=== PATIENT | female | born 1955 | race Caucasian/White ===

== ENCOUNTER 2021-11-16 09:09 | Inpatient (IN) | payer MEDICARE, OTHER ==
[2021-11-07 16:33] LABS: BASOPHILS # (AUTO) 0.1 X10'3 (0-0.2); BASOPHILS % (AUTO) 0.9 % (0-1); EOSINOPHILS # (AUTO) 0.3 X10'3 (0-0.9); EOSINOPHILS % (AUTO) 3.8 % (0-6); MEAN CORPUSCULAR HEMOGLOBIN 29.4 PG (27.0-31.0); MEAN CORPUSCULAR HGB CONC 33.4 g/dL (33.0-36.5); MEAN CORPUSCULAR VOLUME 88.2 FL (78-98); MEAN PLATELET VOLUME 7.4 FL (7.4-10.4); MONOCYTES # (AUTO) 0.6 X10'3 (0-0.9); MONOCYTES % (AUTO) 7.3 % (2-12); NEUTROPHILS # (AUTO) 4.6 X10'3 (1.8-7.7); PRE OP HEMATOCRIT 37.4 % (35.0-45.0); PRE OP HEMOGLOBIN 12.5 g/dL (12.0-16.0); PRE OP PLATELET COUNT 243 X10'3 (140-440); RED BLOOD COUNT 4.24 X10'6 (4.20-5.60); RED CELL DISTRIBUTION WIDTH 14.6 % (11.5-14.5)
[2021-11-07 16:42] LABS: HEMOGLOBIN A1C 7.6 % (4.5-6.2)
[2021-11-07 16:50] LABS: ALBUMIN/GLOBULIN RATIO 1.2 (1.1-1.5); ALKALINE PHOSPHATASE 95 IU/L (46-116); BLOOD UREA NITROGEN 17 MG/DL (7-18); BUN/CREATININE RATIO 13.1 (6.6-38.0); CALCIUM 9.8 MG/DL (8.5-10.1); CHLORIDE 102 MMOL/L (99-107); PRE OP ALT 45 U/L (30-65); PRE OP ANION GAP 8 (8-16); PRE OP AST 44 U/L (10-37); PRE OP BILIRUB, TOTAL 0.5 MG/DL (0.0-1.0); PRE OP GLUCOSE 99 MG/DL (70-104); PRE OP POTASSIUM 3.9 MMOL/L (3.4-5.1); PRE OP SODIUM 139 MMOL/L (135-145); TOTAL CARBON DIOXIDE 28.7 MMOL/L (24-32); TOTAL PROTEIN 7.4 G/DL (6.4-8.2); eGFR 41 ML/MIN
[2021-11-16] VITALS (37 sets, daily range): BP systolic 115–155; BP diastolic 41–110
[~2021-11-16] VITALS: Ht 160 cm; Wt 107.0 kg
[~2021-11-16 09:09] MED LIST: ASCO1TAB42 PO; CHOL20004 PO; DET2LAC PO; GLIP2.5T3 PO; IBUP-1986 PO; IPRA4AER IH; LOSA25TA96 PO; LOSA50TA3 PO; MAGN500C4 PO; MECO10002 PO; MONT4TAB20 PO; OMEP40CA21 PO; SITA1TAB6 PO; TRAZ-251 PO; TRIA1TAB94 PO; VENL25TA48 PO; albuterol 2.5 MG/3 ML nebule NEB PRN; ceFAZolin inj. 2,000 MG in dextrose 5%-water 100 ML IV ONE; famotidine 20mg tablet PO ONE; ringers solution, lacted 1,000 ML IV SCH; tranexamic acid inj. 1,000 MG in 0.7% saline 100 ML PMX IV ONE; vancomycin 1,500 MG in NS 300ml IV soln IV ONE
--- NOTE | 2021-11-16 09:25 | NUR ---
CSM: PEDAL PULSES PRESENT AND MARKED. PATIENT READ THE BROCHURE AND WATCHED THE VIDEO. PATIENT USED MUPIROCIN CREAM ORDERED. EDUCATED PATIENT ON THE USE OF THE INCENTIVE SPIROMETER AND ITS IMPORTANCE.
[2021-11-16] MEDS ORDERED: ketorolac trometh. 30mg/ml inj. ONE (10:16)
[2021-11-16] MEDS ORDERED: morphine 10mg/ml inj. ONE (10:17)
[2021-11-16] MEDS ORDERED: ROPIVAcaine 0.5% (5mg/ml) 30ml vial ONE ×2 (10:17→11:07)
[2021-11-16] MEDS ORDERED: epiNEPHrine 1 mg/ml inj ONE (10:17)
[2021-11-16] MEDS ORDERED: vancomycin 1,000mg inj ONE ×2 (10:17→13:53)
[2021-11-16] MEDS ORDERED: ondansetron/PF 4mg/2ml inj IV PRN ×2 (10:55→14:55)
[2021-11-16] MEDS ORDERED: labetalol 20mg/4ml (5mg/ml) syringe IV PRN (10:55)
[2021-11-16] MEDS: ROPIVAcaine 0.2%/PF PUMP/bolus 545 ML ADDCANAL SCH (10:55)
[2021-11-16] MEDS ORDERED: HYDROmorphone/PF 0.2 MG/ML SYRINGE IV PRN (10:55)
[2021-11-16] MEDS ORDERED: ringers solution, lacted 1,000 ML IV SCH (10:55)
[2021-11-16] MEDS ORDERED: hydrALAZINE 20mg/ml inj. IV PRN (10:55)
[2021-11-16] MEDS ORDERED: fentaNYL/PF 50MCG/1 ML 2ML syringe IV PRN (10:55)
[2021-11-16] MEDS ORDERED: tetracaine 1% (10mg/ml) pres. free inj. ONE (11:07)
[2021-11-16] MEDS ORDERED: MIDAZolam 1mg/ml 10ml vial ONE (11:11)
[2021-11-16] MEDS ORDERED: fentaNYL/PF 50MCG/1 ML 2ML syringe ONE (11:11)
[2021-11-16] MEDS ORDERED: LIDOcaine 2% (20mg/ml) 5ml vial ONE (11:29)
[2021-11-16] MEDS ORDERED: propofol inj 20 ML IV ONE (11:30)
[2021-11-16] MEDS ORDERED: triamcinolone acetonide 40mg/ml inj ONE (11:36)
[2021-11-16] MEDS ORDERED: LIDOcaine 1% (10mg/ml) 2ml vial ONE (11:36)
[2021-11-16] MEDS ORDERED: epiNEPHrine 1 mg/ml inj IU ONE (12:23)
[2021-11-16] MEDS ORDERED: ROPIVAcaine 0.5% (5mg/ml) 30ml vial IJ ONE (12:23)
[2021-11-16] MEDS ORDERED: triamcinolone acetonide 40mg/ml inj IJ ONE (12:29)
[2021-11-16] MEDS ORDERED: LIDOcaine 1% (10mg/ml) 2ml vial IM ONE (12:31)
--- NOTE | 2021-11-16 14:52 | NUR ---
Received from OR via BED, accompanied by Anesthesiologist and OR NURSE. PT DROWSY BUT ABLE TO WAKE TO VERBAL STIMULATION AND FOLLOW COMMANDS. Addendum: 11/16/21 at 1533 by Ximena Dia RN Amended: Links added.
[2021-11-16] MEDS ORDERED: oxyCODONE IR 5mg (immed. release) tablet PO PRN (14:55)
[2021-11-16] MEDS ORDERED: HYDROmorphone 1 mg/ml syringe IV PRN (14:55)
[2021-11-16] MEDS ORDERED: bisacodyl 10mg suppository rectal RC PRN (14:55)
[2021-11-16] MEDS ORDERED: naloxone 0.4 mg/ml inj IV PRN (14:55)
[2021-11-16] MEDS ORDERED: magnesium hydroxide 30ml (MOM) UD suspension PO PRN (14:55)
[2021-11-16] MEDS ORDERED: HYDROmorphone inj. 0.5 MG/0.5 ML DISP.SYRIN IV PRN (14:55)
[2021-11-16] MEDS ORDERED: acetaminophen 325mg tablet PO PRN (14:55)
[2021-11-16] MEDS ORDERED: diphenhydrAMINE 25mg capsule PO PRN ×2 (14:55)
[2021-11-16] MEDS: HYDROmorphone/PF 0.2 MG/ML SYRINGE IV PRN ×5 (16:12→18:35)
--- NOTE | 2021-11-16 16:15 | NUR ---
ATTEMPTED TO CONNECT ONQ TO THE ABDUCTOR CANAL CATHETER PLACED IN OR. BLOOD IMMEDIATELY DRAINED FROM CATHETER. CALLED DR CALLES UPDATED ORDERS RECEIVED, DR SWAIN IN RECOVERY. ASSESSED PT AND D'C CATHETER; DRESSING APPLIED. BOTH ATTENDING SURGERY UPDATED Addendum: 11/16/21 at 1640 by Ximena Dia RN Amended: Links added.
[2021-11-16] MEDS: fentaNYL/PF 50MCG/1 ML 2ML syringe IV PRN ×2 (17:15→17:22)
[2021-11-16] MEDS: oxyCODONE IR 5mg (immed. release) tablet PO PRN (17:27)
--- NOTE | 2021-11-16 17:39 | NUR ---
Received report from Luly in PACU. They are still waiting for the cold therapy and then will bring the patient up to the floor. Patient will be coming up with pain not well controlled.
[2021-11-16] MEDS ORDERED: tranexamic acid inj. 1,000 MG in normal saline 100ml IV soln 90 ML IV ONE (17:40)
--- NOTE | 2021-11-16 17:50 | NUR ---
PT REMAINS VERY PAINFUL, UPPER THIGH REMAINS SOFT, NO S/S OF BLEEDING. CALL INTO DR CALLES AND UPDATED. ORDERS RECEIVED TO GIVE MORE PAIN MEDICATION AND START A DILAUDID CADD. Addendum: 11/16/21 at 1826 by Jill Argueta RN Amended: Links added.
[2021-11-16] MEDS: HYDROmorph/NS 0.2 mg/ml PCA 100 ML IV SCH ×4 (19:03→22:57)
--- NOTE | 2021-11-16 19:19 | NUR ---
Report called to receiving nurse. Transferred via BED WITH 2 BAGS OF Belongings. PT CHART HAD NOTE ON CHART STATING RETURNED HOME TO CALL WITH UPDATE; HOWEVER IN WAITING ROOM. ACCOMPANIED PT AND STAFF TO ROOM; UPDATES GIVEN. PT PAIN NOT WELL CONTROLLED BUT IMPROVED AT TIME OF TRANSFER; AFFECTED SIDE WARM AND SOFT TO PALPATION. RECEIVING NURSE AT BEDSIDE AND FULL REPORT GIVEN. . Special Issues communicated to receiving nurse. Addendum: 11/16/21 at 1940 by Ximena Dia RN Amended: Links added.
[2021-11-16] MEDS ORDERED: vancomycin/NS 1 GM ADD-VANTAGE 250 ML IV SCH (20:00)
[2021-11-16] MEDS ORDERED: non-formulary drug (Ibuprofen 1 TAB) PO PRN (20:30)
[2021-11-16] MEDS: ceFAZolin/D5W- 1GM premix 50 ML IV SCH (20:41)
[2021-11-16] MEDS: gabapentin 300mg capsule PO SCH (20:41)
[2021-11-16] MEDS: acetaminophen 325mg tablet PO SCH (20:42)
[2021-11-16] MEDS: tolterodine 2mg SR capsule (24hr) PO SCH (20:42)
[2021-11-16] MEDS: sennosides 8.6mg tablet PO SCH (20:42)
[2021-11-16] MEDS ORDERED: ipratropium/albuterol 3ml nebule IH PRN (20:50)
[2021-11-16] MEDS ORDERED: VENL75TA90 PO (20:53)
[2021-11-16] MEDS ORDERED: venlafaxine 25mg tablet PO SCH (21:00)
[2021-11-16] MEDS: losartan 50mg tablet PO SCH (21:56)
[2021-11-16] MEDS: traZODone 50mg tablet PO SCH (21:56)
[2021-11-16] MEDS: potassium cl 20mEq in 1/2 NS 1,000 ML IV SCH ×2 (21:57→22:55)
[2021-11-16] MEDS: metFORMIN 500mg tablet PO SCH (22:57)
[2021-11-17] MEDS ORDERED: GLIP5TAB13 PO (00:12)
[2021-11-17] MEDS ORDERED: MONT-40 PO (00:14)
[2021-11-17] MEDS: HYDROmorph/NS 0.2 mg/ml PCA 100 ML IV SCH ×8 (01:00→14:55)
--- NOTE | 2021-11-17 01:30 | NUR ---
battery would not charge on cadd pump. changed out before battery . no interruption of medication for patient. count will start over on new cadd.
[2021-11-17 01:45] VITALS: BP 146/72
[2021-11-17] MEDS: acetaminophen 325mg tablet PO SCH ×4 (01:45→20:04)
--- NOTE | 2021-11-17 01:52 | NUR ---
pt has been sleeping- woke up for vitals and patient very painful. took a couple of doses of dilaudid for patient to relax and pain control to have effect. also gave tylenol and benadryl as ordered. pt talking with roommate - encouraged guided imagery.
--- NOTE | 2021-11-17 01:56 | NUR ---
Witnessed change of new cadd pump due to battery dying. same medication and same settings with Pan FLAHERTY.
[2021-11-17] MEDS: ceFAZolin/D5W- 1GM premix 50 ML IV SCH (04:39)
[2021-11-17 06:00] VITALS: BP 143/71
--- NOTE | 2021-11-17 06:43 | NUR ---
reported to days. noted pt using cadd pump - awake and able to use for physical therapy. left leiva in place until pt able to be more mobile
[2021-11-17] MEDS ORDERED: metFORMIN 500mg tablet PO SCH (08:00)
[2021-11-17] MEDS ORDERED: BIOTIN PO SCH (08:00)
[2021-11-17] MEDS ORDERED: VITAMIN E PO SCH (08:00)
[2021-11-17] MEDS ORDERED: venlafaxine XR 75mg capsule (Q24H) PO SCH (08:00)
[2021-11-17] MEDS ORDERED: glipizide 5mg tablet PO SCH (08:00)
[2021-11-17] MEDS: MECOBALAMIN PO SCH (08:00)
[2021-11-17] MEDS ORDERED: [UNRECOGNIZED DRUG - OTHER] PO SCH (08:00)
[2021-11-17] MEDS ORDERED: ASCORBIC ACID PO SCH (08:00)
[2021-11-17] MEDS: triamterene/HCTZ 37.5/25mg tablet PO SCH (08:00)
[2021-11-17] MEDS ORDERED: non-formulary drug (Sitagliptin Phos/Metformin HCl (Janumet 50-1,000 mg Tablet) 1 TAB) PO SCH (08:00)
[2021-11-17] MEDS ORDERED: non-formulary drug (Venlafaxine HCl (Venlafaxine HCl ER) 1 TAB) PO SCH (08:00)
[2021-11-17] MEDS: metFORMIN 500mg tablet PO SCH ×2 (08:07→20:04)
[2021-11-17] MEDS: pantoprazole 40mg Tablet.DR PO SCH (08:08)
[2021-11-17] MEDS: losartan 50mg tablet PO SCH ×2 (08:08→21:26)
[2021-11-17] MEDS: cholecalciferol (vitamin D3) 1,000 unit (25mcg) tablet PO SCH (08:08)
[2021-11-17] MEDS: magnesium oxide 400mg tablet PO SCH (08:09)
[2021-11-17] MEDS: montelukast 10mg tablet PO SCH (08:09)
[2021-11-17] MEDS: linagliptin 5mg tablet PO SCH ×2 (08:09→20:04)
[2021-11-17] MEDS: gabapentin 300mg capsule PO SCH ×3 (08:09→21:27)
[2021-11-17] MEDS: enoxaparin 40mg/0.4ml syringe SQ SCH (08:10)
[2021-11-17] MEDS: potassium cl 20mEq in 1/2 NS 1,000 ML IV SCH ×3 (09:54→18:09)
[2021-11-17 10:00] VITALS: BP 118/47
[2021-11-17 11:09] LABS: BASOPHILS % (AUTO) 0.4 % (0-1); EOSINOPHILS # (AUTO) 0.2 X10'3 (0-0.9); EOSINOPHILS % (AUTO) 2.1 % (0-6); HEMATOCRIT 31.2 % (35.0-45.0); HEMOGLOBIN 10.6 g/dl (12.0-16.0); LYMPHOCYTES # (AUTO) 1.2 X10'3 (1.1-4.8); LYMPHOCYTES % (AUTO) 12.9 % (21-51); MEAN CORPUSCULAR HEMOGLOBIN 30.1 PG (27.0-31.0); MEAN CORPUSCULAR HGB CONC 34.2 g/dL (33.0-36.5); MEAN PLATELET VOLUME 7.5 FL (7.4-10.4); MONOCYTES # (AUTO) 0.8 X10'3 (0-0.9); MONOCYTES % (AUTO) 9.3 % (2-12); NEUTROPHILS # (AUTO) 6.8 X10'3 (1.8-7.7); NEUTROPHILS % (AUTO) 75.3 % (42-75); PLATELET COUNT 203 X10'3 (140-440); RED BLOOD COUNT 3.54 X10'6 (4.20-5.60); RED CELL DISTRIBUTION WIDTH 14.6 % (11.5-14.5); WHITE BLOOD COUNT 9.1 X10'3 (4.5-11.0)
[2021-11-17 11:28] LABS: ALBUMIN 3.1 G/DL (3.4-5.0); ANION GAP 9 (8-16); BLOOD UREA NITROGEN 13 MG/DL (7-18); BUN/CREATININE RATIO 10.7 (6.6-38.0); CALCIUM 8.5 MG/DL (8.5-10.1); CHLORIDE 101 MMOL/L (99-107); CREATININE 1.22 MG/DL (0.40-0.90); GLUCOSE 199 MG/DL (70-104); POTASSIUM 4.5 MMOL/L (3.5-5.1); SODIUM 137 MMOL/L (135-145); TOTAL CARBON DIOXIDE 27.5 MMOL/L (24-32); eGFR 44 ML/MIN
[2021-11-17] MEDS ORDERED: DEXTROSE 15 GM of carb/4 tabs (each vial/BOTTLE has 4 tablets) PO PRN ×2 (12:20)
[2021-11-17] MEDS ORDERED: glucagon, human recombinant 1mg kit SUBCUT PRN (12:20)
[2021-11-17] MEDS ORDERED: dextrose 50%-water 50ml dispensing syringe IV PRN ×2 (12:20)
[2021-11-17] MEDS: insulin Lispro (HumaLOG) vial - multi-dose SQ SCH ×2 (13:19→20:03)
[2021-11-17 13:58] VITALS: BP 126/61
[2021-11-17] MEDS ORDERED: PCA WASTE DOCUMENTATION MC ONE (16:35)
[2021-11-17] MEDS: oxyCODONE IR 5mg (immed. release) tablet PO PRN ×2 (16:43→21:29)
[2021-11-17 18:00] VITALS: BP 143/64
--- NOTE | 2021-11-17 18:30 | NUR ---
Patient in room [facility]TH[facility] 4014. I have received report from KRYSTINA Massey and had the opportunity to ask questions and assume patient care.
[2021-11-17] MEDS: celeCOXIB 100mg capsule PO SCH (20:04)
[2021-11-17] MEDS: traZODone 50mg tablet PO SCH (21:23)
[2021-11-17] MEDS: tolterodine 2mg SR capsule (24hr) PO SCH (21:25)
[2021-11-17] MEDS: sennosides 8.6mg tablet PO SCH (21:27)
[2021-11-17] MEDS: venlafaxine XR 75mg capsule (Q24H) PO SCH (21:28)
[2021-11-17] MEDS: insulin glargine (Lantus) pen - multi-dose SQ SCH (21:33)
[2021-11-17 22:00] VITALS: BP 142/58
[2021-11-18] MEDS: acetaminophen 325mg tablet PO SCH ×3 (02:26→13:17)
[2021-11-18] MEDS: oxyCODONE IR 5mg (immed. release) tablet PO PRN ×4 (04:22→19:24)
[2021-11-18 06:00] VITALS: BP 137/61
--- NOTE | 2021-11-18 06:48 | NUR ---
Problems reprioritized. Patient report given, questions answered & plan of care reviewed with KRYSTINA Shirley.
[2021-11-18] MEDS: potassium cl 20mEq in 1/2 NS 1,000 ML IV SCH (06:55)
[2021-11-18] MEDS: MECOBALAMIN PO SCH (08:00)
[2021-11-18] MEDS: cholecalciferol (vitamin D3) 1,000 unit (25mcg) tablet PO SCH (08:28)
[2021-11-18] MEDS: linagliptin 5mg tablet PO SCH ×2 (08:28→19:28)
[2021-11-18] MEDS: pantoprazole 40mg Tablet.DR PO SCH (08:28)
[2021-11-18] MEDS: montelukast 10mg tablet PO SCH (08:29)
[2021-11-18] MEDS: losartan 50mg tablet PO SCH ×2 (08:29→21:22)
[2021-11-18] MEDS: magnesium oxide 400mg tablet PO SCH (08:30)
[2021-11-18] MEDS: metFORMIN 500mg tablet PO SCH ×2 (08:31→19:25)
[2021-11-18] MEDS: celeCOXIB 100mg capsule PO SCH ×2 (08:31→19:25)
[2021-11-18] MEDS: enoxaparin 40mg/0.4ml syringe SQ SCH (08:32)
[2021-11-18] MEDS: gabapentin 300mg capsule PO SCH ×3 (08:33→21:12)
[2021-11-18] MEDS: triamterene/HCTZ 37.5/25mg tablet PO SCH (08:36)
[2021-11-18] MEDS: insulin Lispro (HumaLOG) vial - multi-dose SQ SCH ×3 (09:14→19:20)
[2021-11-18 10:00] VITALS: BP 142/64
[2021-11-18] MEDS: ROPIVAcaine 0.2%/PF PUMP/bolus 545 ML ADDCANAL SCH (10:55)
--- NOTE | 2021-11-18 14:43 | NUR ---
DM Consult: Pt hx T2DM A1C 7.6% per EMR. Written DM ed w/ RD contact information placed in pt chart. Addendum: 11/18/21 at [address] Amended: Links added.
[2021-11-18] MEDS ORDERED: acetaminophen 325mg tablet PO PRN (14:55)
[2021-11-18 18:00] VITALS: BP 109/55
--- NOTE | 2021-11-18 18:32 | NUR ---
Problems reprioritized. Patient report given, questions answered & plan of care reviewed with erica alfonso.
[2021-11-18] MEDS: venlafaxine XR 75mg capsule (Q24H) PO SCH (21:11)
[2021-11-18] MEDS: traZODone 50mg tablet PO SCH (21:12)
[2021-11-18] MEDS: sennosides 8.6mg tablet PO SCH (21:12)
[2021-11-18] MEDS: tolterodine 2mg SR capsule (24hr) PO SCH (21:12)
[2021-11-18] MEDS: insulin glargine (Lantus) pen - multi-dose SQ SCH (21:18)
[2021-11-18 22:00] VITALS: BP 131/47
[2021-11-19] MEDS: oxyCODONE IR 5mg (immed. release) tablet PO PRN (05:57)
[2021-11-19 06:00] VITALS: BP 111/64
--- NOTE | 2021-11-19 06:18 | NUR ---
Problems reprioritized. Patient report given, questions answered & plan of care reviewed with JONO FLAHERTY.
[2021-11-19] MEDS: enoxaparin 40mg/0.4ml syringe SQ SCH (07:01)
[2021-11-19] MEDS: linagliptin 5mg tablet PO SCH (07:01)
[2021-11-19] MEDS: magnesium oxide 400mg tablet PO SCH (07:03)
[2021-11-19] MEDS: losartan 50mg tablet PO SCH (07:03)
[2021-11-19] MEDS: gabapentin 300mg capsule PO SCH (07:04)
[2021-11-19] MEDS: triamterene/HCTZ 37.5/25mg tablet PO SCH (07:04)
[2021-11-19] MEDS: pantoprazole 40mg Tablet.DR PO SCH (07:04)
[2021-11-19] MEDS: celeCOXIB 100mg capsule PO SCH (07:04)
[2021-11-19] MEDS: cholecalciferol (vitamin D3) 1,000 unit (25mcg) tablet PO SCH (07:05)
[2021-11-19] MEDS: metFORMIN 500mg tablet PO SCH (07:05)
[2021-11-19] MEDS: MECOBALAMIN PO SCH (07:06)
[2021-11-19] MEDS: montelukast 10mg tablet PO SCH (07:09)
[2021-11-19] MEDS: insulin Lispro (HumaLOG) vial - multi-dose SQ SCH (08:53)
[2021-11-19 10:00] VITALS: BP 108/61
--- NOTE | 2021-11-19 13:53 | NUR ---
Patient discharged at 1345 in stable condition to home. iv removed, tip intact no complications. belongings sent with pt. educated pt on discharge follow up.
== END 2021-11-19 13:48 | disposition home or self-care (01) | DRG 470 ==
LOC: PAS IN 09:09 → ORTHO 4S 19:22
PROVIDERS: ADMIT Orthopaedic Surgery; ATTEND Orthopaedic Surgery
PROC: 3E0T3BZ Introduction of Anesthetic Agent into Peripheral Nerves and Plexi, Percutaneous Approach (ICD-10-PCS; 2021-11-16)
PROC: 0SRC0M9 Replacement of Right Knee Joint with Lateral Unicondylar Synthetic Substitute, Cemented, Open Approach (ICD-10-PCS; principal; 2021-11-16 11:00)
DX: M17.11 Unilateral primary osteoarthritis, right knee (principal); Z20.822 Contact with and (suspected) exposure to COVID-19
CPT/HCPCS: 36415; 71046; 73560; 80048; 80053; 82948; 83036; 85025; 87081; 87811; 93005; 94760; 97110; 97116; 97162; 97530; A4215; A4615; A4618; A6258; A6446; A6449; A7000; C1713; C1758; C1776; C9250; G0378; J0171; J0690; J1170; J1650; J1815; J1885; J2250; J2274; J2704; J2795; J3010; J3301; J3370; J3480; J3490; J7040; J7050; J7060; J7120; Q0163